=== PATIENT | male | born 1980 | race Caucasian/White ===

== ENCOUNTER 2019-08-24 16:06 | Inpatient (IN) | payer BC ==
[~2019-08-24] VITALS: Ht 185.4 cm; Wt 89.8 kg
[2019-08-24 16:20] VITALS: Ht 185.4 cm; Wt 89.8 kg
[2019-08-24 17:49] LABS: BASOPHIL % 0.3 % (0-2); PLATELET COUNT 158 x10^3mcL (130-400); RED CELL DISTRIBUTION WIDTH 12.8 % (11.5-14.5)
[2019-08-24 17:50] LABS: CALCIUM 8.7 mg/dL (8.5-10.1); CARBON DIOXIDE 28.1 mmol/L (21-32); CHLORIDE SERUM 99 mmol/L (98-107); GFR1 > 60 mL/min; GLUCOSE SERUM 158 mg/dL (74-106); POTASSIUM SERUM 4.1 mmol/L (3.5-5.1); SODIUM SERUM 135 mmol/L (136-145)
[2019-08-24 17:57] LABS: ALBUMIN 3.9 g/dL (3.4-5.0); ALKALINE PHOSPHATASE 67 U/L (46-116); ALT/SGPT 61 U/L (16-63); AST/SGOT 32 U/L (15-37); BILIRUBIN TOTAL 0.2 mg/dL (0.20-1.00); TOTAL PROTEIN, SERUM 7.8 g/dL (6.4-8.2)
[2019-08-24] MEDS ORDERED: ZESTRIL5 MG (20:16)
[2019-08-24] MEDS ORDERED: LIPITOR20 MG (20:16)
[2019-08-24] MEDS ORDERED: METFORMIN500 M1 (20:16)
[2019-08-24 22:50] VITALS: BP 137/79
[2019-08-24 23:05] LABS: CHOLESTEROL/HDL RATIO 2.8
[2019-08-24 23:29] LABS: microscopic required? NO
[2019-08-24 23:36] LABS: urine erythrocyte NEGATIVE (NEGATIVE)
[2019-08-24 23:50] LABS: AMPHETAMINE QUAL UR NONE DETECTED (See below)
[2019-08-25 05:42] VITALS: BP 116/65
[2019-08-25 07:59] LABS: BASOPHIL % 0.3 % (0-2); PLATELET COUNT 153 x10^3mcL (130-400); RED CELL DISTRIBUTION WIDTH 13.1 % (11.5-14.5)
[2019-08-25 08:02] LABS: CALCIUM 8.6 mg/dL (8.5-10.1); CARBON DIOXIDE 26.6 mmol/L (21-32); CHLORIDE SERUM 104 mmol/L (98-107); CREATININE SERUM 0.8 mg/dL (0.7-1.3); GFR1 > 60 mL/min; GLUCOSE SERUM 103 mg/dL (74-106); POTASSIUM SERUM 3.8 mmol/L (3.5-5.1); SODIUM SERUM 140 mmol/L (136-145)
[2019-08-25 08:09] VITALS: BP 110/74
[2019-08-25 08:18] LABS: T4(THYROXINE) 8.5 ug/dL (4.7-13.3)
[2019-08-25 12:37] VITALS: BP 109/73
[2019-08-25 16:02] VITALS: BP 109/73
[2019-08-25 16:13] VITALS: BP 124/77
[2019-08-26 05:07] LABS: RAPID PLASMA REAGIN Non Reactive (Non Reactive)
[2019-08-26 09:08] LABS: RHEUMATOID ARTHRITIS FACTOR <10.0 IU/mL (0.0-13.9)
== END 2019-08-25 16:36 | disposition home or self-care (01) | DRG 312 ==
LOC: ED 16:06 → DU 20:04
PROVIDERS: Emergency Medicine; ADMIT Internal Medicine
DX: R55 Syncope and collapse (principal); I10 Essential (primary) hypertension; E11.9 Type 2 diabetes mellitus without complications; I48.91 Unspecified atrial fibrillation; E78.00 Pure hypercholesterolemia, unspecified; I25.10 Atherosclerotic heart disease of native coronary artery without angina pectoris; E78.5 Hyperlipidemia, unspecified; F17.200 Nicotine dependence, unspecified, uncomplicated; Z71.6 Tobacco abuse counseling
CPT/HCPCS: 82962; 86431; G0378; Q0092